=== PATIENT | female | born 1985 | race Caucasian/White ===

== ENCOUNTER 2016-10-28 02:59 | Inpatient (IN) | payer SELFPAY ==
[~2016-10-28] VITALS: Ht 157.5 cm; Wt 88.5 kg
[2016-10-28] MEDS ORDERED: LACTATED RINGERS 1,000 ML IV SCH (03:16)
[2016-10-28] MEDS ORDERED: DEXT 5%/LR + PITOCIN 20UNITS/L 1,000 ML IV SCH ×2 (03:16→05:38)
[2016-10-28] MEDS ORDERED: PREN-88 PO (03:17)
[2016-10-28] MEDS ORDERED: FERR-63 PO (03:17)
[2016-10-28] MEDS ORDERED: CARBOPROST TROMETHAMINE 250 MCG/ML AMPUL IM PRN (03:30)
[2016-10-28] MEDS ORDERED: PENICILLIN G POTASSIUM 5 MMU in DEXT 5% WATER 100 ML IV SCH (03:30)
[2016-10-28] MEDS ORDERED: LIDOCAINE HCL 1% 20ML VIAL (Pyxis) INJ INFIL SCH (03:30)
[2016-10-28] MEDS ORDERED: METHYLERGONOVINE MALEATE 0.2 MG/ML IM PRN (03:30)
[2016-10-28] MEDS ORDERED: NALOXONE HCL 0.4 MG/ML 1ML VIAL IM PRN (03:30)
[2016-10-28] MEDS ORDERED: BUTORPHANOL TARTRATE 2 MG/ML VIAL IV PRN (03:30)
[2016-10-28 04:19] LABS: BASOPHILS % 0.5 % (0.0-2.0); CLARITY URINE CLOUDY (CLEAR); COLOR URINE DARK YELLOW (YELLOW); GLUCOSE URINE NEGATIVE (NEGATIVE); HEMATOCRIT. 25.3 % (36.0-48.0); HEMOGLOBIN. 7.6 g/dL (12.0-16.0); KETONES URINE TRACE (NEGATIVE); LEUKOCYTE ESTERASE URINE 2+ (NEGATIVE); MEAN CORPUSCULAR HEMOGLOBIN 19.1 pg (28.0-32.0); MEAN CORPUSCULAR HGB CONC 30.1 g/dL (31.0-37.0); MEAN CORPUSCULAR VOLUME 63.5 fL (81.0-99.0); MEAN PLATELET VOLUME 7.2 fl (7.4-10.4); MONOCYTES % 3.6 % (2.0-8.0); NEUTROPHILS % 80.9 % (40.0-76.0); NITRITE URINE NEGATIVE (NEGATIVE); OCCULT BLOOD URINE TRACE (NEGATIVE); PLATELET 280 x1000/uL (130-400); PROTEIN URINE 1+ (NEGATIVE); RED BLOOD CELL COUNT 3.99 mill/uL (4.2-5.4); RED CELL DISTRIBUTION WIDTH 21.1 % (11.6-14.6); SPECIFIC GRAVITY URINE 1.024 (1.005-1.030); WHITE BLOOD COUNT 10.8 x1000/uL (4.5-11.0)
[2016-10-28 04:31] LABS: DIFFERENTIAL COMMENT 1
[2016-10-28 04:32] LABS: ADD RBC MORPHOLOGY YES
[2016-10-28 05:16] LABS: *AMPHETAMINES SCREEN URINE NEGATIVE (NEGATIVE); *BARBITURATES SCREEN URINE NEGATIVE (NEGATIVE); *BENZODIAZEPINES SCREEN URINE NEGATIVE (NEGATIVE); *COCAINE SCREEN URINE NEGATIVE (NEGATIVE); CANNABINOID URINE SCREEN NEGATIVE (NEGATIVE); ECSTASY MDMA SCREEN URINE NEGATIVE (NEGATIVE); METHADONE URINE SCREEN NEGATIVE (NEGATIVE); OPIATES URINE SCREEN NEGATIVE (NEGATIVE); PHENCYCLIDINE URINE SCREEN NEGATIVE (NEGATIVE)
[2016-10-28] MEDS ORDERED: IBUPROFEN 400MG TABLET PO PRN (05:45)
[2016-10-28] MEDS ORDERED: LANOLIN OINT 0.25 GM TUBE TOP PRN (05:45)
[2016-10-28] MEDS ORDERED: RHO(D) IMMUNE GLOBULIN 300 MCG/SYR IM PRN (05:45)
[2016-10-28] MEDS ORDERED: IBUPROFEN 800MG TABLET PO PRN (05:45)
[2016-10-28 06:51] LABS: HEPATITIS B SURFACE ANTIGEN NEGATIVE; RUBELLA IGG 14.1 IU/mL (4.99-10)
[2016-10-28 07:11] LABS: SQUAMOUS EPITHELIAL CELL URINE 1+ /lpf (RARE/1+)
[2016-10-28 07:12] LABS: RBC URINE 0-2 /hpf (0-2)
[2016-10-28 07:16] LABS: BACTERIA URINE 2+
[2016-10-28 07:21] LABS: ANISOCYTOSIS 3+
[2016-10-28 07:22] LABS: PLATELET ESTIMATE NORMAL
[2016-10-28 08:00] VITALS: BP 123/69
[2016-10-28 08:40] VITALS: BP 119/76
[2016-10-28] MEDS: PRENATAL VIT/FE FUMARATE/FA TABLET PO SCH (08:44)
[2016-10-28 16:05] VITALS: BP 113/69
[2016-10-28 19:15] VITALS: BP 137/82
[2016-10-28 23:45] VITALS: BP 124/85
[2016-10-29 06:58] LABS: BASOPHILS % 0.5 % (0.0-2.0); EOSINOPHILS % 0.9 % (0.0-5.0); LYMPHOCYTES % 32.6 % (20.0-50.0); MEAN CORPUSCULAR HEMOGLOBIN 18.7 pg (28.0-32.0); MEAN CORPUSCULAR HGB CONC 29.4 g/dL (31.0-37.0); MEAN CORPUSCULAR VOLUME 63.7 fL (81.0-99.0); MEAN PLATELET VOLUME 7.1 fl (7.4-10.4); MONOCYTES % 5.9 % (2.0-8.0); NEUTROPHILS % 60.1 % (40.0-76.0); PLATELET 219 x1000/uL (130-400); RED BLOOD CELL COUNT 3.14 mill/uL (4.2-5.4); RED CELL DISTRIBUTION WIDTH 21.6 % (11.6-14.6)
[2016-10-29 07:13] VITALS: BP 119/69
[2016-10-29 07:15] LABS: DIFFERENTIAL COMMENT 1; HEMOGLOBIN. 5.9 g/dL (12.0-16.0)
[2016-10-29 07:35] VITALS: BP 111/73
[2016-10-29] MEDS ORDERED: LACTATED RINGERS 1,000 ML IV SCH (07:45)
[2016-10-29] MEDS: PRENATAL VIT/FE FUMARATE/FA TABLET PO SCH (08:11)
[2016-10-29] MEDS: FERROUS SULFATE 325MG TABLET PO SCH ×3 (08:47→18:01)
[2016-10-29 16:00] VITALS: BP 110/67
[2016-10-29 23:30] VITALS: BP 128/71
[2016-10-30 04:00] VITALS: BP 122/72
[2016-10-30] MEDS ORDERED: LACTATED RINGERS 1,000 ML IV SCH (07:45)
[2016-10-30 08:20] VITALS: BP 119/65
[2016-10-30] MEDS: FERROUS SULFATE 325MG TABLET PO SCH (09:12)
[2016-10-30] MEDS: PRENATAL VIT/FE FUMARATE/FA TABLET PO SCH (09:12)
== END 2016-10-30 10:30 | disposition home or self-care (01) | DRG 560 ==
LOC: OBSVTOIN 02:59 → L&D 02:59 → 8EST 08:11
PROVIDERS: ADMIT Obstetrics & Gynecology; ATTEND Obstetrics & Gynecology
PROC: 10E0XZZ Delivery of Products of Conception, External Approach (ICD-10-PCS; principal; 2016-10-28 05:25)
DX: O99.02 Anemia complicating childbirth (principal); D62 Acute posthemorrhagic anemia; Z3A.00 Weeks of gestation of pregnancy not specified; Z37.0 Single live birth; Z53.20 Procedure and treatment not carried out because of patient's decision for unspecified reasons
CPT/HCPCS: 36415; 80305; 81001; 85025; 85610; 85730; 86592; 86703; 86762; 86850; 86900; 87340; J2210; J2310; J2540; J2590; J3490; J7060; J7120

== ENCOUNTER 2017-11-30 04:16 | Inpatient (IN) | payer MEDICAID ==
[~2017-11-30] VITALS: Ht 160 cm; Wt 81.6 kg
[~2017-11-30 04:16] MED LIST: FERR-63 PO; PREN-88 PO
[2017-11-30] MEDS ORDERED: DEXT 5%/LR + PITOCIN 20UNITS/L 1,000 ML IV SCH ×3 (04:53→06:04)
[2017-11-30] MEDS ORDERED: LACTATED RINGERS 1,000 ML IV SCH (04:53)
[2017-11-30] MEDS ORDERED: MISOPROSTOL 100MCG TABLET VG SCH (05:00)
[2017-11-30] MEDS ORDERED: BUTORPHANOL TARTRATE 2 MG/ML VIAL IV PRN (05:00)
[2017-11-30] MEDS ORDERED: LIDOCAINE HCL/PF 1% 10 MG/ML 5ML VIAL IJ SCH ×2 (05:00→07:30)
[2017-11-30] MEDS ORDERED: CARBOPROST TROMETHAMINE 250 MCG/ML AMPUL IM PRN (05:00)
[2017-11-30] MEDS ORDERED: METHYLERGONOVINE MALEATE 0.2 MG/ML IM PRN (05:00)
[2017-11-30] MEDS ORDERED: NALOXONE HCL 0.4 MG/ML 1ML VIAL IM PRN (05:00)
[2017-11-30] MEDS ORDERED: PENICILLIN G POTASSIUM 5 MMU in DEXT 5% WATER 100 ML IV SCH (05:00)
[2017-11-30] MEDS ORDERED: LIDOCAINE HCL/PF 1% 10 MG/ML 5ML VIAL ONE (05:44)
[2017-11-30] MEDS ORDERED: MISOPROSTOL 100MCG TABLET ONE (05:51)
[2017-11-30] MEDS ORDERED: ACETAMINOPHEN WITH CODEINE 300/30MG TABLET PO PRN ×2 (06:15)
[2017-11-30] MEDS ORDERED: TETANUS, DIPHTHERIA, PERTUSSIS VAC/PF 0.5ML (>7YR OLD) IM ONE (06:15)
[2017-11-30] MEDS ORDERED: BISACODYL 10MG SUPP PR PRN (06:15)
[2017-11-30] MEDS ORDERED: IBUPROFEN 400MG TABLET PO PRN (06:15)
[2017-11-30] MEDS ORDERED: GLYCERIN/WITCH HAZEL LEAF MEDICATED PAD TOP PRN (06:15)
[2017-11-30] MEDS ORDERED: DIPHENHYDRAMINE 25MG CAPSULE PO PRN (06:15)
[2017-11-30] MEDS ORDERED: LANOLIN OINT 0.25 GM TUBE TOP PRN (06:15)
[2017-11-30] MEDS ORDERED: HEMORRHOIDAL SUPP PR PRN (06:15)
[2017-11-30] MEDS ORDERED: RHO(D) IMMUNE GLOBULIN 300 MCG/SYR IM PRN (06:15)
[2017-11-30] MEDS ORDERED: BENZOCAINE/LANOLIN/ALOE VERA SPRAY TOP PRN (06:15)
[2017-11-30 07:26] LABS: INR 0.9; PARTIAL THROMBOPLASTIN TIME 22.9 sec (23.4-31.0); PROTHROMBIN TIME 9.7 sec (9.4-11.6)
[2017-11-30 07:32] LABS: BASOPHILS % 0.4 % (0.0-2.0); MEAN CORPUSCULAR HEMOGLOBIN 18.8 pg (28.0-32.0); MEAN CORPUSCULAR VOLUME 61.3 fL (81.0-99.0); MEAN PLATELET VOLUME 8.5 fl (7.4-10.4); MONOCYTES % 4.5 % (2.0-8.0); NEUTROPHILS % 78.1 % (40.0-76.0); PLATELET 220 x1000/uL (130-400); RED CELL DISTRIBUTION WIDTH 20.2 % (11.6-14.6)
[2017-11-30 07:45] VITALS: BP 110/54
[2017-11-30 07:47] LABS: CHLORIDE 105 mEq/L (98-107)
[2017-11-30 08:16] LABS: HEMATOCRIT. 20.8 % (36.0-48.0); HEMOGLOBIN. 6.4 g/dL (12.0-16.0)
[2017-11-30 08:40] VITALS: BP 110/65
[2017-11-30 10:03] LABS: RUBELLA IGG 18.5 IU/mL (4.99-10)
[2017-11-30 10:04] LABS: HEPATITIS B SURFACE ANTIGEN NEGATIVE
[2017-11-30 10:45] LABS: PLATELET ESTIMATE NORMAL
[2017-11-30] MEDS: PRENATAL VIT/FE FUMARATE/FA TABLET PO SCH (11:53)
[2017-11-30] MEDS: FERROUS SULFATE 325MG TABLET PO SCH ×2 (11:54→19:11)
[2017-11-30 13:50] LABS: KETONES URINE TRACE (NEGATIVE); LEUKOCYTE ESTERASE URINE 2+ (NEGATIVE); NITRITE URINE NEGATIVE (NEGATIVE); OCCULT BLOOD URINE 3+ (NEGATIVE); PROTEIN URINE 1+ (NEGATIVE); SPECIFIC GRAVITY URINE 1.014 (1.005-1.030)
[2017-11-30 13:52] LABS: CLARITY URINE CLOUDY (CLEAR); COLOR URINE BLOODY (YELLOW)
[2017-11-30 14:08] LABS: *AMPHETAMINES SCREEN URINE NEGATIVE (NEGATIVE); *BARBITURATES SCREEN URINE NEGATIVE (NEGATIVE); *BENZODIAZEPINES SCREEN URINE NEGATIVE (NEGATIVE); *COCAINE SCREEN URINE NEGATIVE (NEGATIVE)
[2017-11-30 14:09] LABS: CANNABINOID URINE SCREEN NEGATIVE (NEGATIVE); METHADONE URINE SCREEN NEGATIVE (NEGATIVE); PHENCYCLIDINE URINE SCREEN NEGATIVE (NEGATIVE)
[2017-11-30 14:13] LABS: OPIATES URINE SCREEN PRESUMTIVE POSITIVE (NEGATIVE)
[2017-11-30 16:16] VITALS: BP 104/52
[2017-11-30 19:40] VITALS: BP 125/58
[2017-11-30] MEDS: DOCUSATE SODIUM 100MG CAPSULE PO SCH (21:16)
[2017-12-01] VITALS (12 sets, daily range): BP systolic 108–127; BP diastolic 59–73
[2017-12-01] MEDS ORDERED: MEDROXYPROGESTERONE ACETATE 150MG/ML VIAL IM SCH (07:00)
[2017-12-01] MEDS: PRENATAL VIT/FE FUMARATE/FA TABLET PO SCH (08:45)
[2017-12-01] MEDS: FERROUS SULFATE 325MG TABLET PO SCH ×2 (08:45→16:11)
[2017-12-01 09:05] LABS: BASOPHILS % 0.4 % (0.0-2.0); EOSINOPHILS % 0.6 % (0.0-5.0); LYMPHOCYTES % 30.5 % (20.0-50.0); MEAN CORPUSCULAR HEMOGLOBIN 18.4 pg (28.0-32.0); MEAN CORPUSCULAR VOLUME 62.2 fL (81.0-99.0); MEAN PLATELET VOLUME 8.6 fl (7.4-10.4); MONOCYTES % 3.6 % (2.0-8.0); NEUTROPHILS % 64.9 % (40.0-76.0); PLATELET 192 x1000/uL (130-400); RED BLOOD CELL COUNT 2.99 mill/uL (4.2-5.4); RED CELL DISTRIBUTION WIDTH 19.9 % (11.6-14.6)
[2017-12-01 09:19] LABS: HEMATOCRIT. 18.6 % (36.0-48.0); HEMOGLOBIN. 5.5 g/dL (12.0-16.0)
[2017-12-01] MEDS ORDERED: ACETAMINOPHEN 325MG TABLET PO NR (10:30)
[2017-12-01] MEDS ORDERED: DIPHENHYDRAMINE 25MG CAPSULE PO NR (10:30)
[2017-12-01] MEDS ORDERED: FERROUS SULFATE 325MG TABLET PO SCH (12:10)
[2017-12-01 18:37] LABS: HEMATOCRIT 26.3 % (36.0-48.0); HEMOGLOBIN 8.3 g/dL (12.0-16.0); MEAN CORPUSCULAR HEMOGLOBIN 21.7 pg (28.0-32.0); MEAN CORPUSCULAR VOLUME 68.6 fL (81.0-99.0); PLATELET 224 x1000/uL (130-400); RED BLOOD CELL COUNT 3.84 mill/uL (4.2-5.4); RED CELL DISTRIBUTION WIDTH 26.9 % (11.6-14.6)
[2017-12-01] MEDS: DOCUSATE SODIUM 100MG CAPSULE PO SCH (21:19)
[2017-12-02 06:00] VITALS: BP 117/61
[2017-12-02] MEDS: FERROUS SULFATE 325MG TABLET PO SCH (09:47)
[2017-12-02] MEDS: PRENATAL VIT/FE FUMARATE/FA TABLET PO SCH (09:47)
== END 2017-12-02 12:20 | disposition home or self-care (01) | DRG 560 ==
LOC: OBSVTOIN 04:16 → L&D 04:16 → 7EST PP/OB 08:38
PROVIDERS: ADMIT Specialist; ATTEND Specialist
PROC: 0HQ9XZZ Repair Perineum Skin, External Approach (ICD-10-PCS; principal; 2017-12-01)
PROC: 10E0XZZ Delivery of Products of Conception, External Approach (ICD-10-PCS; 2017-12-01)
PROC: 30233N1 Transfusion of Nonautologous Red Blood Cells into Peripheral Vein, Percutaneous Approach (ICD-10-PCS; 2017-12-01)
DX: O70.0 First degree perineal laceration during delivery (principal); D64.9 Anemia, unspecified; O99.02 Anemia complicating childbirth; Z37.0 Single live birth; Z3A.39 39 weeks gestation of pregnancy
CPT/HCPCS: 36415; 80053; 80305; 80361; 81003; 84550; 85025; 85027; 85384; 85610; 85730; 86592; 86703; 86762; 86850; 86900; 86920; 87340; J1050; J2540; J2590; J3490; J7040; J7060; J7120; P9016; Q0163